=== PATIENT | female | born 1965 | race Caucasian/White ===

== ENCOUNTER 2016-11-10 03:31 | Emergency (ER) | payer OTHER ==
[~2016-11-10] VITALS: Ht 162.6 cm; Wt 49.1 kg
[2016-11-10 03:41] VITALS: BP 127/82; PULSE 95; RESP 18; O2SAT 98
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
[2016-11-10] MEDS ORDERED: _Albuterol-HFA 60 Puff Inhaler INHALATION PRN (06:45)
[2016-11-10] MEDS ORDERED: HYDR-656 PO (06:46)
[2016-11-10] MEDS ORDERED: PENI500T PO (06:46)
== END 2016-11-10 07:15 | disposition home or self-care (01) ==
LOC: SED 03:31
DX: K02.9 Dental caries, unspecified (principal); F17.200 Nicotine dependence, unspecified, uncomplicated; Z76.0 Encounter for issue of repeat prescription; Z59.0 Homelessness